=== PATIENT | male | born 1970 | race Caucasian/White ===

== ENCOUNTER 2016-07-23 14:12 | Emergency (ER) | payer BC ==
[2016-07-23 14:33] VITALS: RESP 16; TEMP 97.7
[2016-07-23] MEDS ORDERED: LET GEL TOPICAL 1 EA SYR TP ONE (15:06)
[2016-07-23] MEDS ORDERED: LIDOCAINE 2% VISCOUS 15 ML UDCUP PO ONE (15:15)
[2016-07-23] MEDS ORDERED: TDAP ADULT 0.5 ML INJ (BOOSTRIX) IM ONE (15:45)
--- NOTE | 2016-07-23 15:58 | EDPHY ---
H & P Time Seen by Provider: 07/23/16 14:57 HPI/ROS: CHIEF COMPLAINT: Lip laceration History by patient HISTORY OF PRESENT ILLNESS: 46-year-old man presents complaining of laceration just above his right upper lip from a a metal bird cage that he was cleaning. He says it slipped and flew up hitting him in the face. He did also bite down on his inner lip but does not think the laceration is all the way through. He thinks his last tetanus shot was 3 years ago but his is uncertain about this. He denies any other pain or injury. REVIEW OF SYSTEMS: As in HPI, and all other systems reviewed and are negative Physical Exam: General Appearance: Alert and no distress. Head: normocephalic, atraumatic, no sinus tenderness Eyes: Pupils equal and round no injection. Mouth: Positive 1.5 cm laceration above right upper lip through dermis to deep tissue, positive ecchymoses and swelling on the mucosal side, no loose teeth OP: mucus membranes moist, Neck: no meningismus, [ ] cervical nodes, no submandibular nodes Gastrointestinal: Abdomen is soft and nontender, no masses, bowel sounds normal. Musculoskeletal: Neck is supple and nontender. Extremities have full range of motion and are nontender. Constitutional: Initial Vital Signs Temperature (C) 36.5 C 07/23/16 14:25 Heart Rate 82 07/23/16 14:25 Respiratory Rate 16 07/23/16 14:25 Blood Pressure 155/97 H 07/23/16 14:25 O2 Sat (%) 94 07/23/16 14:25 O2 Delivery Mode Room Air Allergies/Adverse Reactions: No Known Allergies Allergy (Verified 07/23/16 14:30) Home Medications: Medication Instructions Recorded Amoxicillin/Clavulanate Pot 875 mg PO BID #14 tab 07/23/16 [Augmentin 875 MG TAB (*)] Gemfibrozil [Lopid 600 MG (*)] 07/23/16 MDM/Departure - MDM Procedures: Procedure: Regional anesthesia. A infraorbital block was performed for anesthesia above the lip. The block was performed with 1% lidocaine with epinephrine. The patient experienced complete pain relief. The procedure was performed by myself. Procedure: Laceration repair. Verbal consent was obtained from the patient. The 1.5 cm laceration on the right upper lip was anesthetized with infraorbital nerve block. The wound was irrigated, draped and explored to its base with a cotton swab. There were no deep structures involved. No tendon injury was identified. The wound was repaired with for time 6 0 Prolene interrupted suture. The wound repair was uncomplicated and successful. The procedure was performed by myself. Medications Given: Discontinued Medications Lidocaine (Lidocaine 2% Viscous) 5 ml PO EDNOW ONE Stop: 07/23/16 15:16 Last Admin: 07/23/16 15:45 Dose: 1 ml Tetracaine/Epinephrine/Lidocaine (Let Gel Topical) 1 ea TP EDNOW ONE Stop: 07/23/16 15:07 Last Admin: 07/23/16 15:10 Dose: 1 ea - Depart Disposition: Home, Routine, Self-Care Clinical Impression: Laceration of face Qualifiers: Encounter type: initial encounter Qualified Code(s): S01.81XA - Laceration without foreign body of other part of head, initial encounter Condition: Good Instructions: Facial Laceration (ED) Additional Instructions: You were seen by Dr. Ny Clark today. Keep the wound covered with Aquaphor. Have the stitches removed in 5 days. Once the stitches are out keep the wound covered with sunscreen. Watch for signs and symptoms of infection and return immediately if the develop. Take antibiotics as prescribed. Take probiotics 2 hours before and 2 hours after taking antibiotics to prevent antibiotic associated diarrhea. Return for any worsening or new concerns. Prescriptions: Amoxicillin/Clavulanate Pot [Augmentin 875 MG TAB (*)] 875 mg PO BID #14 tab Referrals: NONE *PRIMARY CARE P,. [Primary Care Provider] - As per Instructions
[2016-07-23] MEDS ORDERED: TETANUS, DIPHTHERIA TOX (7YR+) 0.5 ML INJ IM ONE (16:48)
[2016-07-23 17:29] VITALS: BP 156/89; PULSE 79; O2SAT 93
== END 2016-07-23 16:55 | disposition home or self-care (01) ==
LOC: CED 14:12
PROC: 0CQ0XZZ Repair Upper Lip, External Approach (ICD-10-PCS; principal; 2016-07-23)
DX: S01.511A Laceration without foreign body of lip, initial encounter (principal); Z23 Encounter for immunization; W45.8XXA Other foreign body or object entering through skin, initial encounter; Y99.8 Other external cause status; Y93.89 Activity, other specified